=== PATIENT | female | born 2000 | race Caucasian/White ===

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

== ENCOUNTER 2020-12-30 11:36 | Emergency (ER) | payer BC, OTHER ==
[~2020-12-30] VITALS: Ht 149.9 cm; Wt 69.0 kg
[2020-12-30] MEDS ORDERED: NYSTATIN-TRIAMC15 G1 TOP (12:27)
== END 2020-12-30 12:42 | disposition home or self-care (01) ==
LOC: FSED 12:13
DX: R21 Rash and other nonspecific skin eruption (principal); L30.9 Dermatitis, unspecified; E10.9 Type 1 diabetes mellitus without complications
CPT/HCPCS: 99282

== ENCOUNTER 2021-01-27 20:39 | Inpatient (IN) | payer OTHER ==
[~2021-01-27] VITALS: Ht 149.9 cm; Wt 70.3 kg
[~2021-01-27 20:39] MED LIST changes: +NYSTATIN-TRIAMC15 G1 TOP
[2021-01-27] MEDS ORDERED: ONDANSETRON HCL INJ 2MG/ML 2ML 2 MG/ML VIAL IV STA (21:04)
[2021-01-27] MEDS ORDERED: SODIUM CHLORIDE 0.9% 1000ML 1,000 ML IV ONE (21:15)
[2021-01-27 21:47] LABS: BASOPHILS # (AUTO) 0.1 (0.0-0.1); BASOPHILS % 0.8 % (0.0-1.0); EOSINOPHILS # (AUTO) 0.1 (0.0-0.4); EOSINOPHILS % 1.1 % (0.0-6.0); HEMOGLOBIN 16.1 g/dL (12.0-16.0); LYMPHOCYTES # (AUTO) 2.3 (1.0-3.2); LYMPHOCYTES % 22.6 % (18.0-39.1); MEAN CORPUSCULAR HEMOGLOBIN 29.5 pg (28-32); MEAN CORPUSCULAR HGB CONC 33.5 g/dL (31-35); MEAN CORPUSCULAR VOLUME 87.9 fL (81-99); MONOCYTES # (AUTO) 0.5 (0.2-0.8); MONOCYTES % 4.8 % (4.4-11.3); NEUTROPHILS # (AUTO) 7.1 (2.1-6.9); NEUTROPHILS % 70.3 % (38.7-80.0); PLATELET COUNT 364 x10e3/uL (140-360); RED BLOOD COUNT 5.46 x10e6/uL (3.6-5.1); RED CELL DISTRIBUTION WIDTH 12.3 % (11.7-14.4)
[2021-01-27 22:03] LABS: ALBUMIN 4.1 g/dL (3.5-5.0); ANION GAP 31.7 mmol/L (8-16); CREATININE, SERUM 1.24 mg/dL (0.57-1.11); POTASSIUM 4.7 mmol/L (3.5-5.1)
[2021-01-27 22:08] LABS: CREATINE KINASE MB 0.8 ng/mL (0-5.0)
[2021-01-27 22:23] LABS: CALCIUM 9.6 mg/dL (8.4-10.2)
[2021-01-27] MEDS ORDERED: MAGNESIUM SULF 1GRAM/DEXTROSE 100 ML IV PRN (22:45)
[2021-01-27] MEDS ORDERED: POTASSIUM CHLORIDE 20MEQ/100ML 200 ML IV PRN (22:45)
[2021-01-27] MEDS ORDERED: INSULIN REGULAR, HUMAN 3ML VL 300 UNIT in SODIUM CHLORIDE 0.9% 300 ML IV SCH ×2 (22:45)
[2021-01-27] MEDS ORDERED: [UNRECOGNIZED DRUG - OTHER] IV SCH ×2 (22:58)
[2021-01-27] MEDS ORDERED: HUMAN IV SCH ×2 (22:58)
[2021-01-27] MEDS ORDERED: INSULIN REGULAR IV SCH ×2 (22:58)
[2021-01-27] MEDS ORDERED: SODIUM CHLORIDE 0.9% IV SCH ×2 (22:58)
[2021-01-27] MEDS ORDERED: METOCLOPRAMIDE HCL 10 MG/2ML VIAL IV ONE (23:00)
[2021-01-27] MEDS: INSULIN REGULAR, HUMAN 3ML VL 100 UNIT in SODIUM CHLORIDE 0.9% 100 ML IV SCH ×2 (23:00)
[2021-01-27] MEDS: SODIUM CHLORIDE 0.9% 1000ML 1,000 ML IV SCH (23:30)
[2021-01-27 23:48] LABS: AMPHETAMINES SCREEN,URINE NEGATIVE (NEGATIVE); BENZODIAZEPINES SCREEN,URINE NEGATIVE (NEGATIVE); CLARITY,URINE CLOUDY (CLEAR); COLOR,URINE YELLOW (YELLOW); PHENCYCLIDINE SCREEN,URINE NEGATIVE (NEGATIVE); URINE UROBILINOGEN 0.2 mg/dL (0.2 - 1)
[2021-01-27 23:49] LABS: KETONES,URINE 3+ (NEGATIVE); LEUKOCYTE ESTERASE ,URINE NEGATIVE (NEGATIVE); NITRITE,URINE NEGATIVE (NEGATIVE); PROTEIN,URINE DIPSTICK NEGATIVE (NEGATIVE)
[2021-01-27 23:58] LABS: BACTERIA,URINE MANY /HPF; EPITHELIAL CELLS,URINE MANY /LPF
[2021-01-28] VITALS (17 sets, daily range): BP systolic 83–113; BP diastolic 46–75
[2021-01-28] MEDS ORDERED: CEFTRIAXONE SOD 1 GM/50 ML BAG IV SCH
[2021-01-28] MEDS ORDERED: ONDANSETRON HCL INJ 2MG/ML 2ML 2 MG/ML VIAL IV PRN (00:15)
[2021-01-28] MEDS: CEFTRIAXONE SOD 1 GM in SODIUM CHLORIDE 0.9% 50ML 50 ML IV SCH (00:20)
[2021-01-28] MEDS ORDERED: CEFTRIAXONE SOD 1 GM VIAL ONE (00:26)
[2021-01-28] MEDS: DEXTROSE 5%/0.45% SOD CHL 1,000 ML IV SCH ×5 (02:20→22:45)
[2021-01-28 03:47] LABS: ANION GAP 24.2 mmol/L (8-16); BLOOD UREA NITROGEN 15 mg/dL (7-26); BUN/CREATININE RATIO 14 (6-25); CHLORIDE 111 mmol/L (98-107); EST GLOMERULAR FILTRATION RATE > 60 ML/MIN (60-); GLUCOSE 340 mg/dL (74-118); MAGNESIUM 1.9 MG/DL (1.3-2.1); POTASSIUM 4.2 mmol/L (3.5-5.1); SODIUM 140 mmol/L (136-145)
[2021-01-28 03:54] LABS: CARBON DIOXIDE 9 mmol/L (22-29)
[2021-01-28 06:41] LABS: ANION GAP 19.1 mmol/L (8-16); BLOOD UREA NITROGEN 15 mg/dL (7-26); BUN/CREATININE RATIO 16 (6-25); CALCIUM 7.9 mg/dL (8.4-10.2); CARBON DIOXIDE 14 mmol/L (22-29); CHLORIDE 112 mmol/L (98-107); CREATININE, SERUM 0.93 mg/dL (0.57-1.11); EST GLOMERULAR FILTRATION RATE > 60 ML/MIN (60-); GLUCOSE 119 mg/dL (74-118); MAGNESIUM 1.8 MG/DL (1.3-2.1); POTASSIUM 4.1 mmol/L (3.5-5.1); SODIUM 141 mmol/L (136-145)
[2021-01-28] MEDS: INSULIN REGULAR, HUMAN 3ML VL 100 UNIT in SODIUM CHLORIDE 0.9% 100 ML IV SCH ×2 (07:17)
[2021-01-28] MEDS: SODIUM CHLORIDE 0.9% 1000ML 1,000 ML IV SCH ×2 (07:18→07:19)
[2021-01-28] MEDS ORDERED: DEXTROSE 50% SYRINGE 50 ML IV PRN ×2 (10:30→14:00)
[2021-01-28] MEDS ORDERED: INSULIN REGULAR, HUMAN 3ML VL 100 UNIT in SODIUM CHLORIDE 0.9% 100 ML IV SCH ×4 (11:30→14:00)
[2021-01-28] MEDS ORDERED: POTASSIUM CHLORIDE 10MEQ EA PO ONE (13:30)
[2021-01-28] MEDS ORDERED: POTASSIUM CHLORIDE 20MEQ/100ML 200 ML IV ONE (14:00)
[2021-01-28] MEDS ORDERED: CALCIUM GLUCONATE 10% INJ 4.65 MEQ in SODIUM CHLORIDE 0.9% 50ML 50 ML IV ONE (14:00)
[2021-01-28 14:52] LABS: ANION GAP 16.8 mmol/L (8-16); BLOOD UREA NITROGEN 12 mg/dL (7-26); BUN/CREATININE RATIO 12 (6-25); CALCIUM 8.1 mg/dL (8.4-10.2); CARBON DIOXIDE 17 mmol/L (22-29); CHLORIDE 108 mmol/L (98-107); CREATININE, SERUM 0.99 mg/dL (0.57-1.11); EST GLOMERULAR FILTRATION RATE > 60 ML/MIN (60-); GLUCOSE 174 mg/dL (74-118); MAGNESIUM 1.7 MG/DL (1.3-2.1); POTASSIUM 3.8 mmol/L (3.5-5.1); SODIUM 138 mmol/L (136-145)
[2021-01-28 15:22] LABS: FREE T4 (FREE THYROXINE) 0.89 ng/dL (0.8-1.8); THYROID STIMULATING HORMONE 1.915 uIU/mL (0.350-4.940)
[2021-01-28 20:26] LABS: ANION GAP 14.6 mmol/L (8-16); CREATININE, SERUM 1.16 mg/dL (0.57-1.11); POTASSIUM 3.6 mmol/L (3.5-5.1)
[2021-01-28] MEDS ORDERED: INSULIN GLARGINE 100 UNITS/ML VIAL SQ SCH (21:00)
[2021-01-29] VITALS (21 sets, daily range): BP systolic 89–139; BP diastolic 56–95
[2021-01-29] MEDS: CEFTRIAXONE SOD 1 GM in SODIUM CHLORIDE 0.9% 50ML 50 ML IV SCH (00:48)
[2021-01-29] MEDS ORDERED: CEFTRIAXONE SOD 1 GM VIAL ONE (00:49)
[2021-01-29 04:51] LABS: BASOPHILS # (AUTO) 0.1 (0.0-0.1); BASOPHILS % 0.7 % (0.0-1.0); EOSINOPHILS # (AUTO) 0.2 (0.0-0.4); EOSINOPHILS % 2.3 % (0.0-6.0); HEMATOCRIT 37.6 % (34.2-44.1); LYMPHOCYTES % 40.2 % (18.0-39.1); MEAN CORPUSCULAR HEMOGLOBIN 29.9 pg (28-32); MEAN CORPUSCULAR HGB CONC 34.6 g/dL (31-35); MEAN CORPUSCULAR VOLUME 86.4 fL (81-99); MONOCYTES # (AUTO) 0.5 (0.2-0.8); MONOCYTES % 6.1 % (4.4-11.3); NEUTROPHILS # (AUTO) 3.7 (2.1-6.9); NEUTROPHILS % 50.4 % (38.7-80.0); PLATELET COUNT 232 x10e3/uL (140-360); RED BLOOD COUNT 4.35 x10e6/uL (3.6-5.1); RED CELL DISTRIBUTION WIDTH 12.1 % (11.7-14.4)
[2021-01-29 05:16] LABS: ANION GAP 9.9 mmol/L (8-16); BLOOD UREA NITROGEN 9 mg/dL (7-26); BUN/CREATININE RATIO 12 (6-25); CALCIUM 7.8 mg/dL (8.4-10.2); CARBON DIOXIDE 22 mmol/L (22-29); CHLORIDE 111 mmol/L (98-107); CREATININE, SERUM 0.73 mg/dL (0.57-1.11); EST GLOMERULAR FILTRATION RATE > 60 ML/MIN (60-); GLUCOSE 132 mg/dL (74-118); SODIUM 140 mmol/L (136-145)
[2021-01-29 05:18] LABS: POTASSIUM 2.9 mmol/L (3.5-5.1)
[2021-01-29] MEDS ORDERED: POTASSIUM CHLORIDE 20MEQ/100ML 200 ML ONE (05:30)
[2021-01-29] MEDS: DEXTROSE 5%/0.45% SOD CHL 1,000 ML IV SCH (06:35)
[2021-01-29] MEDS ORDERED: INSULIN LISPRO 100 UNIT/1 ML 3ML VIAL SQ ONE (15:15)
[2021-01-29] MEDS ORDERED: INSULIN LISPRO 100 UNIT/1 ML 3ML VIAL SQ SCH (16:30)
[2021-01-29] MEDS: INSULIN LISPRO 100 UNIT/1 ML 3ML VIAL SQ SCH ×3 (16:30→21:03)
[2021-01-29] MEDS ORDERED: INSULIN GLARGINE 100 UNITS/ML VIAL SQ SCH (21:00)
[2021-01-30] MEDS: CEFTRIAXONE SOD 1 GM in SODIUM CHLORIDE 0.9% 50ML 50 ML IV SCH (00:08)
[2021-01-30] MEDS ORDERED: CEFTRIAXONE SOD 1 GM VIAL ONE (00:11)
[2021-01-30] MEDS: DEXTROSE 5%/0.45% SOD CHL 1,000 ML IV SCH (02:58)
[2021-01-30 03:15] VITALS: BP 115/78
[2021-01-30 05:16] LABS: ANION GAP 13.3 mmol/L (8-16); BLOOD UREA NITROGEN 13 mg/dL (7-26); BUN/CREATININE RATIO 18 (6-25); CALCIUM 8.2 mg/dL (8.4-10.2); CARBON DIOXIDE 26 mmol/L (22-29); CHLORIDE 103 mmol/L (98-107); CREATININE, SERUM 0.72 mg/dL (0.57-1.11); EST GLOMERULAR FILTRATION RATE > 60 ML/MIN (60-); GLUCOSE 254 mg/dL (74-118); POTASSIUM 3.3 mmol/L (3.5-5.1); SODIUM 139 mmol/L (136-145)
[2021-01-30] MEDS: INSULIN LISPRO 100 UNIT/1 ML 3ML VIAL SQ SCH ×6 (07:38→17:21)
[2021-01-30 07:42] VITALS: BP 115/70
[2021-01-30 08:05] VITALS: BP 114/72
[2021-01-30 11:32] VITALS: BP 87/60
[2021-01-30 12:41] VITALS: BP 109/83
[2021-01-30] MEDS ORDERED: POTASSIUM CHLORIDE 20 MEQ TAB CR PO ONE (13:45)
[2021-01-30 15:46] VITALS: BP 113/83
[2021-01-30] MEDS ORDERED: humalog SQ (17:07)
[2021-01-30] MEDS ORDERED: ONDANSETRON HCL 4 MG ORAL DISINTEGRATING TAB PO PRN (18:30)
== END 2021-01-30 18:05 | disposition home or self-care (01) | DRG 638 ==
LOC: ER 20:58 → ERHOLD 01-28 01:17 → ICU 01-28 10:11 → MED/SURG 01-30 07:56
DX: E10.10 Type 1 diabetes mellitus with ketoacidosis without coma (principal); N39.0 Urinary tract infection, site not specified; F19.20 Other psychoactive substance dependence, uncomplicated; Z79.899 Other long term (current) drug therapy; T38.3X6A Underdosing of insulin and oral hypoglycemic [antidiabetic] drugs, initial encounter; Z20.822 Contact with and (suspected) exposure to COVID-19
CPT/HCPCS: 36415; 70450; 71045; 80048; 80053; 80307; 81001; 82550; 82553; 82948; 83036; 83605; 83735; 84439; 84443; 84484; 84702; 85025; 87040; 93005; 99284; J0696; J1815; J1817; J2405; J2765; J3480; J7030; J7050; U0002

== ENCOUNTER 2025-08-10 15:41 | Inpatient (IN) | payer OTHER ==
[2025-08-10] VITALS (9 sets, daily range): BP systolic 89–100; BP diastolic 57–69; PULSE 86–95; RESP 11–21; TEMP 98.1–98.2; O2SAT 96–100
[~2025-08-10] VITALS: Ht 157.5 cm; Wt 68.9 kg
[~2025-08-10 15:41] MED LIST changes: +humalog SQ
[2025-08-10] MEDS: PROMETHAZINE HCL (IM) 25 MG/ML VIAL IM ONE (16:59)
[2025-08-10 17:02] LABS: BASOPHILS % 0.5 % (0.0-1.0); EOSINOPHILS % 0.5 % (0.0-6.0); LYMPHOCYTES % 16.6 % (18.0-39.1); MONOCYTES % 5.8 % (4.4-11.3); NEUTROPHILS % 76.1 % (38.7-80.0); RED CELL DISTRIBUTION WIDTH 12.8 % (11.7-14.4)
[2025-08-10 17:06] LABS: INR 0.95
[2025-08-10] MEDS ORDERED: POTASSIUM CHLORIDE 20MEQ/100ML 200 ML IV PRN (17:15)
[2025-08-10] MEDS: SODIUM CHLORIDE 0.9% 1000ML 1,000 ML IV SCH (17:15)
[2025-08-10 17:16] LABS: EST GLOMERULAR FILTRATION RATE 106 ML/MIN (>=60)
[2025-08-10 17:25] LABS: ABG BASE EXCESS -17.0 mmol/L (-2 - 3); ABG HCO3 11 mmol/L (22-26); ABG OXYGEN SATURATION 98.0 % (95-98); ABG PCO2 26 mmHg (35-45); ABG PH 7.22 (7.35-7.45); ABG PO2 113 mmHg (80-105); ABG TCO2 11
[2025-08-10] MEDS: SODIUM CHLORIDE 0.9% 1000ML 1,000 ML IV STA ×2 (17:57)
[2025-08-10] MEDS: ONDANSETRON HCL INJ 2MG/ML 2ML 2 MG/ML VIAL IV STA (17:58)
[2025-08-10] MEDS ORDERED: PROMETHAZINE 12.5MG/ NACL 0.9% 12.5 MG/50 ML BAG IV PRN (18:00)
[2025-08-10] MEDS: INSULIN REGULAR, HUMAN 100 UNIT/1 ML IV ONE (18:01)
[2025-08-10] MEDS: INSULIN REGULAR, HUMAN 3ML VL 100 UNIT in SODIUM CHLORIDE 0.9% 100 ML IV SCH (18:46)
[2025-08-10] MEDS: DEXTROSE 5%/0.45% SOD CHL 1,000 ML IV SCH (20:21)
[2025-08-10] MEDS ORDERED: MELATONIN 3 MG TAB PO PRN (21:00)
[2025-08-10] MEDS ORDERED: GUAIFENESIN/DEXTROMETHORPHAN LIQD 5 ML UDC PO PRN (21:00)
[2025-08-10] MEDS ORDERED: ACETAMINOPHEN 325 MG TAB PO PRN (21:00)
[2025-08-10] MEDS ORDERED: DOCUSATE SODIUM 100 MG CAP PO PRN (21:00)
[2025-08-10] MEDS ORDERED: MAGNESIUM/ALUMINUM/SIMETHICONE 30 ML UDC PO PRN (21:00)
[2025-08-10] MEDS ORDERED: HYDRALAZINE HCL 20 MG/ML VIAL IV PRN (21:00)
[2025-08-10 21:13] LABS: EST GLOMERULAR FILTRATION RATE 123.0 ML/MIN (>=60)
[2025-08-10] MEDS: MAGNESIUM SULF 1GRAM/DEXTROSE 100 ML IV PRN (22:44)
[2025-08-10] MEDS: ONDANSETRON HCL INJ 2MG/ML 2ML 2 MG/ML VIAL IV PRN (22:44)
[2025-08-11] VITALS (37 sets, daily range): BP systolic 81–110; BP diastolic 49–77; PULSE 71–104; RESP 14–24; TEMP 97.2–98.4; O2SAT 94–100
[2025-08-11] MEDS ORDERED: INSULIN REGULAR, HUMAN 3ML VL 100 UNIT in SODIUM CHLORIDE 0.45% 100 ML 100 ML IV SCH (00:15)
[2025-08-11 04:35] LABS: BASOPHILS % 0.4 % (0.0-1.0); EOSINOPHILS % 0.4 % (0.0-6.0); LYMPHOCYTES % 18.1 % (18.0-39.1); MONOCYTES % 6.9 % (4.4-11.3); NEUTROPHILS % 74.0 % (38.7-80.0); RED CELL DISTRIBUTION WIDTH 12.7 % (11.7-14.4)
[2025-08-11 04:58] LABS: EST GLOMERULAR FILTRATION RATE 106.0 ML/MIN (>=60)
[2025-08-11] MEDS: MULTIVITAMINS/MINERALS TAB PO SCH (09:07)
[2025-08-11 11:04] LABS: EST GLOMERULAR FILTRATION RATE 115.0 ML/MIN (>=60)
[2025-08-11] MEDS: POTASSIUM CHLORIDE 20MEQ/100ML 100 ML IV PRN (12:08)
[2025-08-11 12:48] LABS: LEUKOCYTE ESTERASE ,URINE NEGATIVE (NEGATIVE); PROTEIN,URINE DIPSTICK 1+ (NEGATIVE)
[2025-08-11 12:49] LABS: AMPHETAMINES SCREEN,URINE NEGATIVE (NEGATIVE); CANNABINOIDS SCREEN,URINE POSITIVE (NEGATIVE); COCAINE SCREEN,URINE NEGATIVE (NEGATIVE); METHADONE SCREEN, URINE NEGATIVE (NEGATIVE); OPIATES SCREEN,URINE NEGATIVE (NEGATIVE); URINE UROBILINOGEN 0.2 mg/dL (0.2 - 1)
[2025-08-11 12:56] LABS: CORONAVIRUS COVID-19 AG NEGATIVE (NEGATIVE)
[2025-08-11 12:59] LABS: EPITHELIAL CELLS,URINE MANY /LPF
[2025-08-11] MEDS ORDERED: DEXTROSE 50% SYRINGE 50 ML IV PRN (14:00)
[2025-08-11] MEDS: INSULIN GLARGINE 100 UNITS/ML VIAL SQ ONE (14:21)
[2025-08-11] MEDS: INSULIN LISPRO 100 UNIT/1 ML 3ML VIAL SQ ONE ×2 (14:22→15:32)
[2025-08-11] MEDS: INSULIN GLARGINE 100 UNITS/ML VIAL ONE (15:31)
[2025-08-11] MEDS: INSULIN LISPRO 100 UNIT/1 ML 3ML VIAL SQ SCH ×2 (16:30→17:37)
[2025-08-11] MEDS: ENOXAPARIN SOD INJ 40 MG/0.4 ML SYR SC SCH (17:38)
[2025-08-11] MEDS: INSULIN GLARGINE 100 UNITS/ML VIAL SQ SCH (20:42)
[2025-08-12] VITALS (16 sets, daily range): BP systolic 95–129; BP diastolic 64–99; PULSE 68–103; RESP 11–35; TEMP 98.3; O2SAT 95–100
[2025-08-12] MEDS ORDERED: INSULIN LISPRO 100 UNIT/1 ML 3ML VIAL SQ PRN (06:00)
[2025-08-12 07:40] LABS: EST GLOMERULAR FILTRATION RATE 127.0 ML/MIN (>=60)
[2025-08-12] MEDS: INSULIN LISPRO 100 UNIT/1 ML 3ML VIAL SQ SCH (07:58)
[2025-08-12] MEDS: SODIUM CHLORIDE 0.9% 100 ML ONE (14:03)
[2025-08-30 07:18] LABS: ABG BASE EXCESS -17.0 mmol/L (-2 - 3); ABG HCO3 11 mmol/L (22-26); ABG OXYGEN SATURATION 98.0 % (95-98); ABG PCO2 26 mmHg (35-45); ABG PH 7.22 (7.35-7.45); ABG PO2 113 mmHg (80-105); ABG TCO2 11
== END 2025-08-12 17:00 | disposition home or self-care (01) | DRG 639 ==
LOC: ER 16:40 → ERHOLD 17:58 → ICU 22:23
PROVIDERS: ADMIT Internal Medicine; ATTEND Internal Medicine
DX: E10.10 Type 1 diabetes mellitus with ketoacidosis without coma (principal); Z79.4 Long term (current) use of insulin; E86.0 Dehydration; R11.2 Nausea with vomiting, unspecified; R53.1 Weakness; D72.829 Elevated white blood cell count, unspecified; Z71.3 Dietary counseling and surveillance; Z68.27 Body mass index [BMI] 27.0-27.9, adult; Z86.16 Personal history of COVID-19; Z79.899 Other long term (current) drug therapy
CPT/HCPCS: 36415; 36600; 71045; 74018; 80048; 80053; 80307; 81001; 82550; 82805; 82948; 83036; 83690; 83735; 84100; 84443; 84484; 84702; 85025; 85610; 85730; 87086; 93005; 94799; 96372; 99252; 99284; J1650; J1815; J2405; J2470; J2550; J3475; J3480; J7030; J7050